=== PATIENT | male | born 1990 | race Caucasian/White ===

== ENCOUNTER 2019-05-28 12:33 | Emergency (ER) | payer MEDICAID ==
[~2019-05-28] VITALS: Ht 170.2 cm; Wt 95.3 kg
[2019-05-28 15:33] VITALS: BP 160/95
== END 2019-05-28 15:56 | disposition home or self-care (01) ==
LOC: ER 12:37
DX: K04.7 Periapical abscess without sinus (principal); F17.210 Nicotine dependence, cigarettes, uncomplicated